=== PATIENT | male | born 1960 | race Caucasian/White ===

== ENCOUNTER → 2016-09-12 | Outpatient (CLI) | payer BC ==
--- NOTE | 2016-09-12 09:33 | US ---
EXAMINATION TYPE: US abdomen complete DATE OF EXAM: 09/12/2016 8:41 AM COMPARISON: NONE CLINICAL HISTORY: 55-year-old male R10.11, right upper quadrant pain, bloating noted after meals. TECHNIQUE: Multiple sonographic images of the abdomen were obtained. FINDINGS: Liver Length: 15.1 cm Gallbladder Wall: 0.2 cm CBD: 0.3 cm Spleen: 10.4 cm Right Kidney: 10.7 x 6.0 x 4.3 cm Left Kidney: 10.8 x 3.8 x 5.9 cm Pancreas: wnl Liver: Normal homogeneous echotexture without focal lesion. Gallbladder: No abnormal gallbladder distention, wall thickening, pericholecystic fluid, or shadowin g calculi. Evidence for sonographic Cárdenas's sign: No CBD: wnl Spleen: Normal size. Right Kidney: No hydronephrosis. Left Kidney: No hydronephrosis. Lower IVC: wnl Abd Aorta: wnl IMPRESSION: Unremarkable sonographic examination of the abdomen.
== END | disposition home or self-care (01) ==
LOC: RADUSWWP 07:02
PROVIDERS: ATTEND Family Medicine
DX: R10.11 Right upper quadrant pain (principal)
CPT/HCPCS: 76700

== ENCOUNTER → 2016-09-23 | Outpatient (CLI) | payer BC ==
--- NOTE | 2016-09-24 07:56 | NM ---
EXAMINATION TYPE: NM hepatobiliary w EF DATE OF EXAM: 09/23/2016 5:00 PM COMPARISON: NONE INDICATION: Right upper quadrant pain TECHNIQUE: After the intravenous administration of 5.49 mCi Tc 99m Mebrofenin hepatobiliary scintigra phy is performed. Images were obtained immediately post injection. FINDINGS: There is prompt uptake and excretion of radiotracer by the liver. Extrahepatic ducts are identified at 10 minutes. The gallbladder is visualized within 10 minutes. Small bowel activity is noted within 90 minutes. At one hour 8 ounces of oral ensure plus is given to mimic CCK and gallbladder ejection fraction is c alculated at 86 %, which is which is elevated. (Normal >35% and <80%.). IMPRESSION: 1. Biliary hyperkinesia. 2. There is some limitation with intense activity in the gallbladder limiting additional visualizatio n of structures.
== END ==
LOC: RADNMMAIN 14:56
PROVIDERS: ATTEND Nurse Practitioner
DX: F90.9 Attention-deficit hyperactivity disorder, unspecified type (principal)
CPT/HCPCS: 78226; A9537

== ENCOUNTER 2018-05-05 16:23 | Emergency (ER) | payer BC ==
[2018-05-05 16:33] VITALS: BP 129/82; PULSE 65; RESP 18; TEMP 98
[2018-05-05] MEDS ORDERED: DIPH,PERTUS(ACELL)TETVAC-LF 0.5 ML VIAL IM ONE (16:34)
--- NOTE | 2018-05-05 17:22 | XR ---
EXAMINATION TYPE: XR finger LT DATE OF EXAM: 05/05/2018 COMPARISON: NONE HISTORY: Laceration to left index finger TECHNIQUE: 3 views of left index finger were obtained. FINDINGS: No acute fracture or dislocation. No radiopaque foreign bodies. Soft tissue swelling is see n near the distal portion of the first digit. Limited evaluation of additional included osseous struc tures is unremarkable. IMPRESSION: No acute fracture or dislocation of the left index finger. No radiopaque foreign bodies.
[2018-05-05] MEDS ORDERED: LIDOCAINE 1% INJ 10MG/ML (20 ML MDV) SQ STA (17:31)
--- NOTE | 2018-05-05 18:23 | ED ---
General Adult HPI - General Chief complaint: Wound/Laceration Stated complaint: LEFT INDEX LACERATION Source: patient, RN notes reviewed, old records reviewed Mode of arrival: ambulatory Limitations: no limitations - History of Present Illness Initial comments: 57-year-old male patient in no pertinent past medical history presents to ED with laceration to first digit left hand. Patient was cutting drywall with a straight razor, and accidentally cut his hand. Patient denies any other injury. Patient denies blood thinners, familial coagulation disorder,. Patient denies chest pain, shortness breath, abdominal pain, nausea vomiting diarrhea, fever chills, any other symptoms. Patient states that he still sensation in his first digit on left hand. Patient denies paresthesias. Patient has full range of motion of left first digit. No other complaints. Systemic: Pt denies fatigue, myalgia, fever/chills, rash. Pt denies weakness, night sweats, weight loss. Neuro: Pt denies headache, visual disturbances, syncope or pre-syncope. HEENT: Pt denies ocular discharge or irritation, otalgia, rhinorrhea, pharyngitis or notable lymphadenopathy. Cardiopulmonary: Pt denies chest pain, SOB, heart palpitations, dyspnea on exertion. Abdominal/GI: Pt denies abdominal pain, n/v/d. : Pt denies dysuria, burning w/ urination, frequency/urgency. Denies new onset urinary or bowel incontinence. MSK: Pt denies myalgia, loss of strength or function in extremities. - Related Data Previous Rx's Medication Instructions Recorded Cephalexin [Keflex] 500 mg PO Q12HR 10 Days cap 05/05/18 Allergies Allergy/AdvReac Type Severity Reaction Status Date / Time No Known Allergies Allergy Verified 05/05/18 16:28 Review of Systems ROS Statement: Those systems with pertinent positive or pertinent negative responses have been documented in the HPI. ROS Other: All systems not noted in ROS Statement are negative. Past Medical History Past Medical History: No Reported History History of Any Multi-Drug Resistant Organisms: None Reported Past Surgical History: Tonsillectomy Past Psychological History: No Psychological Hx Reported Smoking Status: Current every day smoker Past Alcohol Use History: None Reported Past Drug Use History: None Reported General Exam - General Exam Comments Initial Comments: Constitutional: NAD, AOX3, Pt has pleasant affect. HEENT: NC/AT, trachea midline, neck supple, no lymphadenopathy. Posterior pharynx non erythematous, without exudates. External ears appear normal, without discharge. Mucous membranes moist. Eyes PERRLA, EOM intact. There is no scleral icterus. No pallor noted. Cardiopulmonary: RRR, no murmurs, rubs or gallops, no JVD noted. Lungs CTAB in anterior and posterior james. No peripheral edema. Abdominal exam: Abdomen soft and non-distended. Abdomen non-tender to palpation in all 4 quadrants. Bowel sounds active in LLQ. No hepatosplenomegaly. Neuro: CN II-XII grossly intact. MSK: approximately 3 cm laceration extending from distal tp of first digit on L hand to just proximal to the nail bed. Pt has full active ROM of digit. Neurovascularly intact, capillary refill <2 seconds. Radial pulse +2 bilaterally. Laceration primarily closed with 5 sutures, nail intact. Pt neurovascularly intact before and after suture procedure. Limitations: no limitations Course Vital Signs 05/05/18 16:28 Temperature 98 F Pulse Rate 65 Respiratory 18 Rate Blood Pressure 129/82 O2 Sat by Pulse 96 Oximetry Procedures - Laceration Laceration #1 Consent Obtained: verbal consent Time Out Performed: Yes Indication: laceration Site: hand Size (cm): 4 Description: linear Depth: simple, single layer Anesthetic Used: lidocaine 1% Anesthesia Technique: local infiltration, nerve block Amount (mls): 4 Pre-repair: wound explored, irrigated extensively Type of Sutures: nylon Size of Sutures: 5-0 Number of Sutures: 5 Technique: simple, interrupted Medical Decision Making - Medical Decision Making 57-year-old male patient in no pertinent past medical history presents to ED with laceration to first digit left hand. Patient was cutting drywall with a straight razor, and accidentally cut his hand. Patient denies any other injury. Patient denies blood thinners, familial coagulation disorder,. Patient denies chest pain, shortness breath, abdominal pain, nausea vomiting diarrhea, fever chills, any other symptoms. Patient states that he still sensation in his first digit on left hand. Patient denies paresthesias. Patient has full range of motion of left first digit. No other complaints. MSK exam displayed approximately 3 cm laceration extending from distal tp of first digit on L hand to just proximal to the nail bed. Pt has full active ROM of digit. Neurovascularly intact, capillary refill <2 seconds. Radial pulse +2 bilaterally. Laceration primarily closed with 5 sutures, nail intact. Pt neurovascularly intact before and after suture procedure. Physical examination of other by systems including neuro, Cardia pulmonary, abdominal, HEENT, did not display any acute pathology. Patient tetanus updated today. Patient given referral to hand surgeon Dr. Bro. Patient to follow up with Dr. Bro 1 -2 days. Patient to follow-up with PCP in 1-2 days. Patient prescribed 10 days of Keflex to prevent infection. Patient to return to ED if any new signs symptoms develop including redness, discharge, increased pain, streaking, warmth , nausea vomiting diarrhea, fever chills, any other new symptoms. Case discussed with Dr. Rebolledo. Disposition Clinical Impression: Laceration Disposition: HOME SELF-CARE Condition: Good Instructions: Laceration (ED) Additional Instructions: Patient to adhere to previously discussed treatment plan and will take medication(s) as directed. Patient to follow up with PCP in 1-2 days. Patient to return to ED if symptoms do not improve. Prescriptions: Cephalexin [Keflex] 500 mg PO Q12HR 10 Days cap Is patient prescribed a controlled substance at d/c from ED?: No Referrals: Eileen Lara DO [Primary Care Provider] - 1-2 days Gato Bro DO [Doctor of Osteopathic Medicine] - 1-2 days Time of Disposition: 18:23
== END 2018-05-05 18:49 | disposition home or self-care (01) ==
LOC: EC 16:23
DX: S61.211A Laceration without foreign body of left index finger without damage to nail, initial encounter (principal); F17.200 Nicotine dependence, unspecified, uncomplicated; Z23 Encounter for immunization; W27.8XXA Contact with other nonpowered hand tool, initial encounter; Y93.89 Activity, other specified; Y92.009 Unspecified place in unspecified non-institutional (private) residence as the place of occurrence of the external cause
CPT/HCPCS: 73140; 90715; 99283; 90471; 12002; J2001

== ENCOUNTER → 2019-09-24 | Outpatient (CLI) | payer BC ==
[2019-09-24 08:53] LABS: ALT 31 U/L (4-49); AST 29 U/L (17-59); African American GFR (CKD) >90 (>60 ml/min/1.73 sqM); Albumin 4.6 g/dL (3.5-5.0); Alkaline Phosphatase 61 U/L (38-126); Anion Gap 8 mmol/L; Blood Urea Nitrogen 17 mg/dL (9-20); Calcium 9.7 mg/dL (8.4-10.2); Carbon Dioxide 30 mmol/L (22-30); Chloride 105 mmol/L (98-107); Glucose 83 mg/dL (74-99); Non-African American GFR(CKD) >90 (>60 ml/min/1.73 sqM); Potassium 4.8 mmol/L (3.5-5.1); Sodium 143 mmol/L (137-145); Total Bilirubin 0.5 mg/dL (0.2-1.3); Total Protein 7.6 g/dL (6.3-8.2)
[2019-09-24 11:05] LABS: HCT 51.6 % (39.0-53.0); HGB 16.4 gm/dL (13.0-17.5); MCHC 31.8 g/dL (31.0-37.0); MCV 91.2 fL (80.0-100.0); Mean Platelet Volume 7.7; Platelet Count 357 k/uL (150-450); RBC 5.66 m/uL (4.30-5.90); RDW 12.7 % (11.5-15.5); WBC 9.1 k/uL (3.8-10.6)
--- NOTE | 2019-09-24 14:27 | NM ---
EXAMINATION TYPE: NM bone scan whole body DATE OF EXAM: 09/24/2019 COMPARISON: EXAMINATION TYPE: NM bone scan whole body DATE OF EXAM: 09/24/2019 COMPARISON: CT of the abdomen and pelvis dated 09/24/2019 HISTORY: Prostate cancer. Nuclear medicine imaging of the axial and appendicular skeleton/whole-body was performed following th e injection of 19.5 mCi. Whole-body and coned-down images were performed at the appropriate time inte rval. FINDINGS: There is abnormal focal radiotracer uptake within the right inferior pubic ramus extending into the p ubic bone. This corresponds to a sclerotic lesion measuring approximately 3.[address] of the kim e date. Very subtle punctate radiotracer asymmetric uptake is seen within the anterior left seventh r ib with very mild subtle sclerosis on the CT of the same date that may represent early metastasis or trauma. There is subtle uptake in L4 anteriorly could be degenerative as no corresponding lesion is s een on CT. Uptake of the thoracic spine is likely degenerative. Nearly symmetric uptake of the should ers, sternoclavicular joints, elbows, wrists, and knees are likely degenerative. IMPRESSION: 1. 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 2. Questionable early osseous metastasis of the anterior margin of rib 7 on the left and possibly of the anterior margin of the vertebral body of L4 (less likely).
--- NOTE | 2019-09-24 16:40 | CT ---
EXAMINATION TYPE: CT abdomen pelvis w con DATE OF EXAM: 09/24/2019 COMPARISON: Nuclear medicine bone scan of the same date HISTORY: Prostate cancer. CT DLP: 445.9 mGycm Automated exposure control for dose reduction was used. TECHNIQUE: Helical acquisition of images was performed from the lung bases through the pelvis. CONTRAST: Performed with Oral Contrast and with IV Contrast, patient injected with 100 mL of Isovue 300. FINDINGS: LUNG BASES: Minimal bibasilar subsegmental atelectasis is seen. LIVER/GB: Minimal focal fatty infiltration near the fissure for the falciform ligament which is on im age 18 on liver windows. No suspicious focal hepatic lesion. Gallbladder demonstrates no evidence of radiopaque calculi. PANCREAS: No significant abnormality is seen. SPLEEN: No splenomegaly. ADRENALS: Left adrenal gland nodule is indeterminate with an average Hounsfield unit of 33. This miri ures 1.5 cm. KIDNEYS: Kidneys enhance and excrete symmetrically without hydronephrosis. REPRODUCTIVE ORGANS: 6 and is heterogenous with multiple areas of hyperemia within the right base and bilateral prostate apex. ADENOPATHY: No greater than 1 cm short axis lymph node in the abdomen or pelvis. No suspicious retro peritoneal adenopathy is identified. OSSEOUS STRUCTURES: There is sclerosis of the anterior lateral margin of the left seventh rib that i s subtle marked on image 3. There is obvious sclerosis of the inferior right pubic ramus measuring ap proximately 3.3 cm marked on image 78. There are few punctate probable bone islands of the bilateral femoral heads. Lucency of the right iliac bone on image 46 measures only 6 mm and is well circumscrib ed, likely benign. Mild degenerative changes of the visualized thoracolumbar spine are seen with some sclerosis of the superior endplate of S1 is likely degenerative. Mild bilateral degenerative change of the hips. BOWEL: There are scattered sigmoid diverticula without pericolonic fat stranding. No dilated large o r small bowel. Appendix is unremarkable. OTHER: There is prominence of the diaphragmatic crura bilaterally. IMPRESSION: 1. OSSEOUS METASTASIS OF THE RIGHT INFERIOR ILIAC BONE AND EITHER EARLY METASTASIS OF THE ANTEROLATER AL MARGIN OF THE LEFT SEVENTH RIB OR POSTTRAUMATIC CHANGE. 2. INDETERMINATE LEFT ADRENAL GLAND NODULE. MRI WITH AND WITHOUT CONTRAST OF THE ABDOMEN UTILIZING IN AND OUT OF PHASE SEQUENCES COULD FURTHER EVALUATE CHARACTERISTICS OF EITHER A BENIGN ADENOMA OR META STASIS.
== END | disposition home or self-care (01) ==
LOC: RADNMMAIN 07:59
PROVIDERS: ATTEND Urology
DX: C79.51 Secondary malignant neoplasm of bone (principal); C61 Malignant neoplasm of prostate
CPT/HCPCS: 80053; 85027; 74177; 78306; 36415; A9503; Q9967 ×2

== ENCOUNTER → 2020-05-18 | Outpatient (CLI) | payer BC ==
--- NOTE | 2020-05-18 10:48 | CT ---
EXAMINATION TYPE: CT abdomen pelvis wo/w con DATE OF EXAM: 05/18/2020 COMPARISON: CT abdomen and pelvis September 24, 2019 HISTORY: Prostate CA CT DLP: 815.2 mGycm, Automated Exposure Control for Dose Reduction was Utilized. CONTRAST: CT scan of the abdomen and pelvis is performed with oral and without and with IV Contrast, patient in jected with 100 mL of Isovue 300. FINDINGS: LUNG BASES: Mild bibasilar linear scarring and/or atelectasis. LIVER/GB: No significant abnormality is appreciated. PANCREAS: No significant abnormality is seen. SPLEEN: No significant abnormality is seen. ADRENALS: Stable 1.5 x 1.1 cm left adrenal low dense mass, Hounsfield units -[address] alejandra ge 13 series 3 consistent with benign lipid rich adenoma. KIDNEYS: No renal calculi on noncontrast CT. Postcontrast images show symmetric cortical medullary u ptake and excretion with central thin-walled parapelvic cyst left kidney. There is new mild right-thierry ed hydronephrosis. No obstructing calculus clearly seen. Bladder shows moderate distention slightly m ore prominent from prior. No intraluminal mass or wall thickening. BOWEL: Oral contrast reaches level of proximal sigmoid colon. No suspicious small or large bowel dila tation. PROSTATE/SEMINAL VESICLES: Heterogeneous normal sized prostate redemonstrated. Scattered bilateral pe lvic phleboliths redemonstrated. LYMPH NODES: No greater than 1cm abdominal or pelvic lymph nodes are appreciated. OSSEOUS STRUCTURES: Stable asymmetric faint sclerosis anterior inferior right pelvic ramus bone coron al image 44 for reference. No new sclerotic osseous lesions clearly seen. OTHER: No significant additional abnormality is seen. IMPRESSION: No suspicious new mass or adenopathy to suggest metastatic neoplasm. Stable nonspecific asymmetric sclerosis of the anterior aspect right inferior pelvic ramus. Increased uptake on bone sca n September 24, 2019 suspicious for osseous metastatic lesion noted.
--- NOTE | 2020-05-18 14:20 | NM ---
EXAMINATION TYPE: NM bone scan whole body DATE OF EXAM: 05/18/2020 COMPARISON: 09/24/2019 HISTORY: C61 prostate ca Delayed whole-body scanning was performed following the injection of 23.5 mCi Tc 99m MDP. Images acq uired 5.25 hours post injection. FINDINGS: New increased radiotracer accumulation: Left rib5 Anteriorly. No additional new foci seen. Improved areas of radiotracer accumulation: Persistent but improved increased radiotracer accumulatio n involving the right inferior pubic ramus. Vague focus noted previously L5. Improved area of radiotr acer accumulation involving left rib #7. Progressive areas of increased radiotracer accumulation: None Stable areas: None IMPRESSION: 1. Single focus of increased radiotracer accumulation noted which is new involving the left anterior rib #5. 2.Improved areas of radiotracer accumulation: Persistent but improved increased radiotracer accumulat ion involving the right inferior pubic ramus. Vague focus noted previously L5. Improved area of radio tracer accumulation involving left rib #7.
== END | disposition home or self-care (01) ==
LOC: RADCTMAIN 06:54
PROVIDERS: ATTEND Radiology Radiation Oncology
DX: R93.7 Abnormal findings on diagnostic imaging of other parts of musculoskeletal system (principal); M89.8X8 Other specified disorders of bone, other site; C61 Malignant neoplasm of prostate; C79.51 Secondary malignant neoplasm of bone
CPT/HCPCS: 74178; 78306; A9503; Q9967 ×2

== ENCOUNTER → 2021-10-28 | Outpatient (CLI) | payer BC ==
[2021-10-28 14:42] LABS: African American GFR (CKD) >90 (>60 ml/min/1.73 sqM); Blood Urea Nitrogen 10 mg/dL (9-20); Non-African American GFR(CKD) >90 (>60 ml/min/1.73 sqM)
--- NOTE | 2021-10-28 15:42 | CT ---
EXAMINATION TYPE: CT abdomen pelvis w con DATE OF EXAM: 10/28/2021 COMPARISON: CT dated 05/18/2020 HISTORY: Prostate CA CT DLP: 930 mGycm Automated exposure control for dose reduction was used. TECHNIQUE: Helical acquisition of images was performed from the lung bases through the pelvis. CONTRAST: Performed with Oral Contrast and with IV Contrast, patient injected with 100 mL of Isovue 300. FINDINGS: LUNG BASES: Bilateral posterior basal groundglass opacity and atelectasis, nonspecific. LIVER/GB: No significant abnormality is appreciated. PANCREAS: No significant abnormality is seen. SPLEEN: No significant abnormality is seen. ADRENALS: Stable 15 mm left adrenal nodule and 8mm right adrenal nodule. KIDNEYS: Unremarkable. FREE AIR: No free air is visualized. RETROPERITONEAL ADENOPATHY: None visualized REPRODUCTIVE ORGANS: Small prostate. Unremarkable seminal vesicles. URINARY BLADDER: Grossly unremarkable. PELVIC ADENOPATHY: No pathologically enlarged pelvic lymph nodes. OSSEOUS STRUCTURES: Healing fracture of the axillary portion of the right 10th rib, please correlate clinically. Further bone scan assessment can be considered. Stable sclerotic area in the right infer ior pubic ramus. No aggressive bone lesion. BOWEL: Scattered uncomplicated colonic diverticulosis. Mild nonspecific wall thickening of the right hemicolon OTHER: Arterial atherosclerotic calcification. No sizable ascites. IMPRESSION: Healing fracture of the axillary portion of the right 10th rib, please correlate clinically. Further bone scan assessment can be considered if clinically required. Otherwise no evidence of metastatic di sease seen in the abdomen or the pelvis.
--- NOTE | 2021-10-29 07:29 | NM ---
EXAMINATION TYPE: NM bone scan whole body DATE OF EXAM: 10/29/2021 COMPARISON: Same day CT. Prior bone scan May 18, 2020 HISTORY: Prostate cancer. Delayed whole-body scanning was performed following the injection of 23.7 mCi Tc 99m MDP. Images acq uired 3 hours post injection. Whole body images in anterior posterior projection along with additiona l spot views of the thorax abdomen and pelvis. FINDINGS: Increasing radiotracer uptake involving anterior left mid rib along with new focus of uptak e involving lateral right lower rib . The latter corresponds to sclerotic expansile area of possible healing fracture coronal image 45. Normal excretion. No additional definitive areas of new suspiciou s radiotracer uptake. IMPRESSION: As above. Given progression or more prominence of findings of the left anterior mid rib l esion osseous metastatic disease needs to be favored. Correlation with PSA values is advised.
== END | disposition home or self-care (01) ==
LOC: RADNMMAIN 09:42
PROVIDERS: ATTEND Urology
DX: C61 Malignant neoplasm of prostate (principal); S22.31XD Fracture of one rib, right side, subsequent encounter for fracture with routine healing
CPT/HCPCS: 82565; 84520; 74177; Q9967; 78306